=== PATIENT | female | born 1960 | race Caucasian/White ===

== ENCOUNTER → 2018-02-25 16:38 | Outpatient (CLI) | payer OTHER, SELFPAY | PROVIDERS: Family Provider Family Medicine; PCP Family Medicine; Visit Provider Nurse Practitioner Women's Health | DX: Z12.31 Encounter for screening mammogram for malignant neoplasm of breast (principal) | CPT/HCPCS: 77063; 77067 ==

== ENCOUNTER → 2019-04-09 08:12 | Outpatient (CLI) | payer OTHER, SELFPAY ==
[2018-02-24 08:02] VITALS: BMI 21.4
--- NOTE | 2019-04-09 08:15 | BI_ITS ---
MAMMOGRAPHY - BILATERAL SCREENING REASON FOR EXAM: Female, 58 years old. Routine annual screening examination. PERTINENT HISTORY: Grandfather with breast cancer. Remote left excisional breast biopsy. TECHNIQUE: Digital bilateral breast breonna (3D mammographic acquisition) in the CC and MLO projections. 2-D mediolateral oblique (MLO) and craniocaudad (CC) views of both breasts were obtained. CAD: Full Field Digital Mammography with Computer Added Detection was performed. COMPARISON: Comparison is made with prior study February 25, 2018 and February 14, 2017. FINDINGS: Breast Composition: The breasts are extremely dense, which lowers the sensitivity of mammography. There are no dominant masses or suspicious calcifications. No other significant abnormalities are identified. There has been no significant change since the prior study. BI/SCREEN MAMM (CAD) W/BREONNA BILAT IMPRESSION: Stable bilateral screening mammogram. Yearly follow-up mammogram recommended. (A) ASSESSMENT CATEGORY: BIRADS Category 1: Negative. A letter regarding these results will be sent to the patient by the facility within 30 days. Approximately 10% of breast cancers are not detected by mammography. A normal mammogram should not delay biopsy of a clinically suspicious abnormality. [id number] Electronically Signed: Greg Avitia, at 9:51 EDT , Service support ,
== END ==
PROVIDERS: Family Provider Family Medicine; PCP Family Medicine; Referring Provider Nurse Practitioner Women's Health; Visit Provider Nurse Practitioner Women's Health
DX: Z12.31 Encounter for screening mammogram for malignant neoplasm of breast (principal); Z80.3 Family history of malignant neoplasm of breast
CPT/HCPCS: 77063; 77067

== ENCOUNTER 2019-06-03 06:57 | Day surgery (SDC) | payer OTHER, SELFPAY ==
[2019-04-09 08:52] VITALS: BMI 21.4
[2019-06-03] VITALS (7 sets, daily range): BP systolic 116–128; BP diastolic 67–78; PULSE 64–79; RESP 15–16; TEMP 36.6–36.9; O2SAT 100; BMI 22.1
--- NOTE | 2019-06-03 07:17 | H&P.OPEN ---
History of Present Illness Date of Admission: 06/03/19 The patient is a 59 year old F presents for screening colonoscopy. Patient's last colonoscopy was in [address] Edmondson patient did have a tubular adenoma in her cecum and redundant colon. Patient was recommended to have a follow-up colonoscopy in 5 years. Patient states she has vomits daily denies any blood denies any chronic abdominal pain nausea or vomiting. Patient denies any family history of colon cancer. Past Medical/Surgical History - Planned Operation Planned Operative Procedure/s: cscope open access S.O.S: No - Previous Hospitalizations/Surgeries HX Hospitalizations: Yes HX of Surgeries: BREAST BX LEFT 85. MENISICUS LEFT REPAIR. CHILDBIRTH X2 VAG. L&R VEIN STRIPPING Any Problems With Anesthesia: No You/Your Family Experience Fever (Hyperthermia) With Anes: No Cholinesterase deficiency: No - Cardiovascular Hx Chest Pain within Last 2 months: No Hx of Irregular Heartbeat and/or Afib: No Hx Heart Attack: No Hx Congestive Heart Failure: No Hx Rheumatic Fever: No Hx Hypertension: No Hx Internal Defibrillator: No Hx Pacemaker: No Hx Cardiac Catheterization: No Hx Cardiac Surgery/Stents/Etc.: No Hx Stress Test: No HX Edema: No Hx Pain in Legs when Walking/Leg Cramps: No - Respiratory Chronic Cough: No HX of Shortness of Breath: No Hoarseness: No Hx Chronic Obstructive Pulmonary Disease (COPD): No Hx Asthma: No Hx Emphysema: No Hx Sleep Apnea: No CPAP: No BIPAP: No Hx Oxygen Use at Home: No Hx Respiratory Tract Infection/Cold (presently): No Do You Snore Loudly (louder than talking or can be heard): No Do You Often Feel Tired/ Fatigued/ Sleepy Dring Daytime?: No Has Anyone Observed You Stop Breathing During Sleep?: No Result (for STOP score): Negative Hx Smoking: No Smoking Status: Never smoker - Gastrointestinal Hx Gastroesophageal Reflux: No Hx Gastrointestinal Disorders: No Hx Gastrointestinal Bleed: No Hx Ulcer: No Hx Hiatal Hernia: No Difficulty Chewing/Swallowing: No Recent Onset of Swallowing Problems: No Special diet followed at home: No Hx Unplanned Weight Loss of 20#: No HX Unplanned Weight Gain of 20#: No - Neurological Hx Seizures: No HX Syncope/Blackout Spells/Unconsciousness: No Hx CVA/Stroke: No Hx Transient Ischemic Attacks (TIA): No Hx Multiple Sclerosis: No Hx Parkinson's Disease: No Hx Head/Neck Injury: No Hx Headaches: No Hx Back Injury/Pain: No Recent Onset of Speech Difficulty: No Restless Legs: No Does patient have nerve stimulator: No Patient instructed to have device shut off: No Rep notified?: No - Blood Disorder Hx Leukemia: No Bleeding Tendencies: No Hx Deep Vein Thrombosis: No Hx High Cholesterol: No Blood Transmitted Disease: No Hx Hepatitis: No Hx Cirrhosis: No Hx Anemia: No Hx Blood Disorders: No - Reproduction : No Is Patient Lactating: No Hx Hysterectomy: No Hx Tubal Ligation: No Are You Post Menopause: Yes - Genitourinary Hx Renal Disease: No - Musculoskeletal Hx Arthritis: No Hx Rheumatoid Arthritis: No Hx Gout: No Recent Onset of an Orthopedic Problem: No - Endocrine Hx Diabetes: No Thyroid Disease: No Hx Steroid Therapy: No - Psycho/Social Hx Substance Use: No Hx Alcohol Use: Yes - occ Hx Anxiety: No Hx Depression: No Mental Illness: No Hx Dementia: No - Miscellaneous Hx Cancer: No Recent Exposure to Contagious Disease: No Active MRSA: No Hx of C-Diff: No Any Loose Teeth: No Allergies No Known Allergies Allergy (Verified 06/03/19 07:08) - Discharge Is Pt Admitted From a Penitentiary, or a Prison: No Who Could Help: family After D/C, Where Do you Plan to Go: Return Home - Physical Exam Vitals/I&O's: Body Mass Index (BMI) 21.4 General: Alert, Oriented x3, Cooperative, No apparent distress HEENT: Atraumatic Lungs: Normal air movement Cardiovascular: Regular rate Abdomen: Soft, Non Tender, Non-Distended Extremities: No clubbing, No cyanosis, No edema Neurological: Cranial nerves II-XII grossly intact Psych/Mental Status: Normal Affect Assessment/Plan 59-year-old female for screening for colon cancer Surgery Risks - Colonoscopy I discussed with the patient the risks of the procedure: Yes Risks Include but are not Limited To: Risks include but are not limited to: Bleeding, perforation requiring further surgery, inability to complete colonoscopy requiring barium enema. Patient no further questions this time.
[2019-06-03] MEDS: Lactated Ringers 1,000 ML 100 ML IV (07:22)
--- NOTE | 2019-06-03 08:00 | COLBX_PTH ---
PATIENT: BRITTON GLASS LOC: EN U#:[id number] AGE/SX: 59/F ROOM: RE06/03/[address]: Dr. Lyssa Rivera MD : 1960 BED: DIS: 06/03/2019 SPEC #: [id number] RECD: 06/03/19 14:03 STATUS: AMINATA MAREK #: [id number] ERNST: 06/03/19 08:[address]: Lyssa Rivera DEPT: SURGICAL PATHOLOGY RECD BY: Олег Quezada ENTERED: 06/03/19 14:32 SP TYPE: COLON BX OTHR DR: Dr. Andrew Mosley MD Tissues: A - Cecum, NOS B - Ascending colon C - Sigmoid colon biopsy Procedures: Surgery Specimen Level IV HEADER OPERATION: Colonoscopy, open access (MAC) PRE-OP DIAGNOSIS: Screening TISSUE SUBMITTED: A. Cecum polyp biopsy, B. Proximal ascending polyp, C. Distal sigmoid biopsy MICROSCOPIC DIAGNOSIS A. Cecum polyp, biopsy: Fragments of tubular adenoma. B. Proximal ascending colon polyp, biopsy: Fragments of tubular adenoma. C. Distal sigmoid, biopsy: Fragments of colonic mucosa with focal ulceration and associated acute inflammation. See comment. MADDY:anatoliy 06/05/19 COMMENT C. Cryptitis, crypt abscess, glandular distortion or granulomas are not seen. Correlation with clinical, endoscopic findings and appropriate follow up are necessary. MICROSCOPIC DESCRIPTION Slides are reviewed. GROSS DESCRIPTION A - Received in fixative is one container labeled with the patient's name and designated cecum biopsy. The specimen consists of two irregular fragments of light segal soft tissue that in aggregate measure 0.5 x 0.3 x 0.1 cm. The specimen is totally submitted in one cassette. B - Received in fixative is one container labeled with the patient's name and designated proximal ascending polyp. The specimen consists of multiple irregular fragments of light segal soft tissue that in aggregate measure 1 x 0.6 x 0.3 cm. The specimen is totally submitted in one cassette. C - Received in fixative is one container labeled with the patient's name and designated distal sigmoid biopsy. The specimen consists of multiple irregular fragments of light segal soft tissue that in aggregate measure 1.5 x 0.3 x 0.1 cm. The specimen is totally submitted in one cassette. / MADDY:anatoliy 06/03/19 TC:1 CPT: 19937 x3
--- NOTE | 2019-06-03 09:04 | OP.COLON_ITS ---
Patient Name: So Brandt Procedure Date: 06/03/2019 7:28 AM Date of : 1960 Age: 59 Procedure: Colonoscopy Indications: Surveillance: Personal history of adenomatous polyps on last colonoscopy > 5 years ago Providers: Lyssa Rivera MD Referring MD: Andrew Mosley Patient Profile: This is a 59 year old female. Last Colonoscopy: 7 years ago. Complications: No immediate complications. Procedure: Pre-Anesthesia Assessment: - Prior to the procedure, a History and Physical was performed, and patient medications and allergies were reviewed. The patient's tolerance of previous anesthesia was also reviewed. The risks and benefits of the procedure and the sedation options and risks were discussed with the patient. All questions were answered, and informed consent was obtained. Prior Anticoagulants: The patient has taken no previous anticoagulant or antiplatelet agents. ASA Grade Assessment: I - A normal, healthy patient. After reviewing the risks and benefits, the patient was deemed in satisfactory condition to undergo the procedure. After I obtained informed consent, the scope was passed under direct vision. Throughout the procedure, the patient's blood pressure, pulse, and oxygen saturations were monitored continuously. The Colonoscope was introduced through the anus and advanced to the cecum, identified by the appendiceal orifice, ileocecal valve and palpation. The colonoscopy was technically difficult and complex due to a tortuous colon. Successful completion of the procedure was aided by applying abdominal pressure. The patient tolerated the procedure well. The quality of the bowel preparation was good. Scope In: 7:51:33 AM Scope Withdrawal Time 0 hours 39 minutes 48 seconds Scope Out: 8:51:46 AM Total Procedure Duration Time 1 hour 0 minutes 13 seconds Findings: Hemorrhoids were found on perianal exam. A less than 5 mm polyp was found in the cecum. The polyp was sessile. The polyp was removed with a cold biopsy forceps. Resection and retrieval were complete. A 6 to 9 mm polyp was found in the proximal ascending colon. The polyp was semi-sessile. Polypectomy was attempted, initially using a saline injection-lift technique with a hot snare. Polyp resection was incomplete with this device. This intervention then required a different device and polypectomy technique. The polyp was removed with a hot snare biopsy x 2 and cold forceps. Resection and retrieval were complete. An area of friable mucosa with no bleeding was found in the sigmoid colon. Biopsies were taken with a cold forceps for histology--after biopsy of wispy tissue, question if could be an inverted diverticulum, no further biopsies--abdomen remained soft. Area was successfully injected with 0.3 of a 1:10,000 solution of epinephrine for hemostasis of bleeding caused by the procedure. Multiple small and large-mouthed diverticula were found in the sigmoid colon, descending colon and transverse colon. Non-bleeding internal hemorrhoids were found. The hemorrhoids were Grade I (internal hemorrhoids that do not prolapse). Impression: - Hemorrhoids found on perianal exam. - One less than 5 mm polyp in the cecum, removed with a cold biopsy forceps. Resected and retrieved. - One 6 to 9 mm polyp in the proximal ascending colon, removed with a hot snare. Resected and retrieved. - Friability with no bleeding in the sigmoid colon. Biopsied. Injected. - Diverticulosis in the sigmoid colon, in the descending colon and in the transverse colon. - Non-bleeding internal hemorrhoids. Recommendation: - Discharge patient to home. - Resume previous diet. - Continue present medications. - Await pathology results. - Repeat colonoscopy in 6 months for surveillance after piecemeal polypectomy. Procedure Code(s): --- Professional --- 35441, Colonoscopy, flexible; with removal of tumor(s), polyp(s), or other lesion(s) by snare technique 00802, 59, Colonoscopy, flexible; with biopsy, single or multiple Diagnosis Code(s): --- Professional --- Z86.010, Personal history of colonic polyps K64.0, First degree hemorrhoids D12.0, Benign neoplasm of cecum D12.2, Benign neoplasm of ascending colon K63.89, Other specified diseases of intestine K57.30, Diverticulosis of large intestine without perforation or abscess without bleeding CPT copyright 2017 [employer]. All rights reserved. The codes documented in this report are preliminary and upon wallpaper printer helper review may be revised to meet current compliance requirements. MD Lyssa Baltazar MD 06/03/2019 9:04:41 AM This report has been signed electronically. Number of Addenda: 0 Note Initiated On: 06/03/2019 7:28 AM
== END 2019-06-03 09:59 | disposition home or self-care (01) ==
LOC: EN 06:57 → AC 06:59
PROVIDERS: Family Provider Family Medicine; PCP Family Medicine; Referring Provider Family Medicine; Visit Provider Surgery
PROC: 0DJD8ZZ Inspection of Lower Intestinal Tract, Via Natural or Artificial Opening Endoscopic (ICD-10-PCS; CPT 45378; principal; 2019-06-03 07:55)
DX: Z12.11 Encounter for screening for malignant neoplasm of colon (principal); D12.0 Benign neoplasm of cecum; D12.2 Benign neoplasm of ascending colon; K57.30 Diverticulosis of large intestine without perforation or abscess without bleeding; K64.0 First degree hemorrhoids; Z79.899 Other long term (current) drug therapy; Z86.010 Personal history of colon polyps; Z78.0 Asymptomatic menopausal state
CPT/HCPCS: 45380; 45385; 88305; J7120; A4216; J1610; J2405

== ENCOUNTER → 2020-04-25 08:06 | Outpatient (CLI) | payer OTHER, SELFPAY ==
[2019-06-03 07:14] VITALS: BMI 22.1
--- NOTE | 2020-04-25 08:06 | BI_ITS ---
MAMMOGRAPHY - BILATERAL SCREENING REASON FOR EXAM: Female, 59 years old. Routine annual screening examination. PERTINENT HISTORY: Grandmother with breast cancer. Remote left excisional breast biopsy. TECHNIQUE: Digital bilateral breast breonna (3D mammographic acquisition) in the CC and MLO projections. 2-D mediolateral oblique (MLO) and craniocaudad (CC) views of both breasts were obtained. CAD: Full Field Digital Mammography with Computer Added Detection was performed. COMPARISON: Comparison is made with prior study done 04/09/2019 and 02/25/2018. FINDINGS: Breast Composition: The breasts are extremely dense, which lowers the sensitivity of mammography. There are no dominant masses or suspicious calcifications. No other significant abnormalities are identified. There has been no significant change since the prior study. BI/SCREEN MAMM (CAD) W/BREONNA BILAT IMPRESSION: Stable bilateral screening mammogram. Yearly follow-up mammogram recommended. (A) ASSESSMENT CATEGORY: BIRADS Category 1: Negative. A letter regarding these results will be sent to the patient by the facility within 30 days. Approximately 10% of breast cancers are not detected by mammography. A normal mammogram should not delay biopsy of a clinically suspicious abnormality. [id number] Electronically Signed: Greg Avitia, at 10:39 EDT , Service support ,
[2020-04-27 14:52] LABS: HPV APTIMA, High Risk Negative (Negative)
== END ==
PROVIDERS: PCP Family Medicine; Referring Provider Nurse Practitioner Women's Health; Visit Provider Nurse Practitioner Women's Health
DX: Z12.31 Encounter for screening mammogram for malignant neoplasm of breast (principal); Z80.3 Family history of malignant neoplasm of breast; Z12.4 Encounter for screening for malignant neoplasm of cervix
CPT/HCPCS: 77063; 77067; 87624; 88175; G0145

== ENCOUNTER → 2020-06-06 16:01 | Outpatient (CLI) | payer OTHER, SELFPAY ==
[2020-04-25 08:48] VITALS: BMI 22.5
--- NOTE | 2020-06-06 16:03 | RAD_ITS ---
STUDY: X-RAY - LEFT HAND REASON FOR EXAM: Female, 60 years old. Fall 2 weeks ago. Continued pain in the fifth metacarpal. TECHNIQUE: 3 view(s) of the hand. COMPARISON: None. FINDINGS: Normal radiocarpal articulation. Normal distal radioulnar joint. Normal visualized carpal bones. Normal carpal articulations Normal carpometacarpal articulation of the thumb. Normal second through fifth carpometacarpal joints. Normal first through fourth metacarpi. There is a mildly displaced fracture through the fifth metacarpal head with slight volar angulation and displacement. Normal metacarpophalangeal joint of the thumb. Normal interphalangeal joint of the thumb. Normal proximal and distal phalanges of the thumb. Normal metacarpophalangeal joints of the second through fifth fingers. There is diffuse articular joint space narrowing of the proximal and distal interphalangeal joints of the second through fifth fingers, but without erosive changes or periarticular soft tissue swelling. Normal phalanges of the second through fifth fingers. The soft tissue structures are unremarkable. RAD/Hand Min 3 Views IMPRESSION: Minimally displaced fracture of the distal fifth metacarpal. Electronically Signed: Ramirez Chiang DO at 16:49 EST Tel [phone], Service support ,
== END ==
PROVIDERS: PCP Family Medicine; Referring Provider Family Medicine; Visit Provider Family Medicine
DX: M79.645 Pain in left finger(s) (principal)
CPT/HCPCS: 73130

== ENCOUNTER 2020-06-08 06:50 | Day surgery (SDC) | payer OTHER, SELFPAY ==
[2020-04-25 08:48] VITALS: BMI 22.5
[2020-06-08] VITALS (7 sets, daily range): BP systolic 116–131; BP diastolic 70–77; PULSE 80–88; RESP 16; TEMP 36.1–36.8; O2SAT 99–100; BMI 22.5
[2020-06-08] MEDS: Lactated Ringers 1,000 ML 100 ML IV (07:28)
--- NOTE | 2020-06-08 07:48 | HP.PCM_ITS ---
History of Present Illness Date of Admission: 06/08/20 The patient is a 60 year old F for surveillance colonoscopy due to piecemeal resection of polyp. Her last colonoscopy was in May 2019. Patient denies any changes to her medical history in the last year. Patient states has bowel movements daily denies any blood denies any family history of colon cancer. Past Medical/Surgical History - Planned Operation Planned Operative Procedure/s: scope Date of Operative Procedure: 06/08/20 Permit Signed: No S.O.S: No Is This Patient Having a Total Joint: No - Previous Hospitalizations/Surgeries HX Hospitalizations: No HX of Surgeries: BREAST BX LEFT 85. MENISICUS LEFT REPAIR. CHILDBIRTH X2 VAG. L&R VEIN STRIPPING. cscope 2019 Any Problems With Anesthesia: No You/Your Family Experience Fever (Hyperthermia) With Anes: No Cholinesterase deficiency: No - Cardiovascular Hx Chest Pain within Last 2 months: No Hx of Irregular Heartbeat and/or Afib: No Hx Heart Attack: No Hx Congestive Heart Failure: No Hx Rheumatic Fever: No Hx Hypertension: No Hx Internal Defibrillator: No Hx Pacemaker: No Hx Cardiac Catheterization: No Hx Cardiac Surgery/Stents/Etc.: No Hx Stress Test: No Hx Pain in Legs when Walking/Leg Cramps: No - Respiratory Chronic Cough: No HX of Shortness of Breath: No Hoarseness: No Hx Chronic Obstructive Pulmonary Disease (COPD): No Hx Asthma: No Hx Emphysema: No Hx Sleep Apnea: No CPAP: No BIPAP: No Hx Oxygen Use at Home: No Hx Respiratory Tract Infection/Cold (presently): No Do You Snore Loudly (louder than talking or can be heard): No Do You Often Feel Tired/ Fatigued/ Sleepy Dring Daytime?: No Has Anyone Observed You Stop Breathing During Sleep?: No Result (for STOP score): Negative Hx Smoking: No Smoking Status: Never smoker - Gastrointestinal Hx Gastroesophageal Reflux: No Hx Gastrointestinal Disorders: No Hx Gastrointestinal Bleed: No Hx Ulcer: No Hx Hiatal Hernia: No Difficulty Chewing/Swallowing: No Recent Onset of Swallowing Problems: No Special diet followed at home: No Hx Unplanned Weight Loss of 20#: No HX Unplanned Weight Gain of 20#: No - Neurological Hx Seizures: No HX Syncope/Blackout Spells/Unconsciousness: No Hx CVA/Stroke: No Hx Transient Ischemic Attacks (TIA): No Hx Multiple Sclerosis: No Hx Parkinson's Disease: No Hx Head/Neck Injury: No Hx Headaches: No Hx Back Injury/Pain: No Recent Onset of Speech Difficulty: No Restless Legs: No Does patient have nerve stimulator: No Patient instructed to have device shut off: No Rep notified?: No - Blood Disorder Hx Leukemia: No Bleeding Tendencies: No Hx Deep Vein Thrombosis: No Hx High Cholesterol: No Blood Transmitted Disease: No Hx Hepatitis: No Hx Cirrhosis: No Hx Anemia: No Hx Blood Disorders: No - Reproduction Is Patient Lactating: No Hx Hysterectomy: No Hx Tubal Ligation: No Are You Post Menopause: Yes - Genitourinary Hx Renal Disease: No - Musculoskeletal Hx Arthritis: No Hx Rheumatoid Arthritis: No Hx Gout: No Recent Onset of an Orthopedic Problem: No - Endocrine Hx Diabetes: No Thyroid Disease: No Hx Steroid Therapy: No - Psycho/Social Hx Substance Use: No Hx Alcohol Use: Yes - occ Hx Anxiety: No Hx Depression: No Mental Illness: No Hx Dementia: No - Miscellaneous Hx Cancer: No Recent Exposure to Contagious Disease: No Active MRSA: No Hx of C-Diff: No Any Loose Teeth: No Allergies No Known Allergies Allergy (Verified 06/08/20 07:12) - Discharge Is Pt Admitted From a [facility], or a Longterm: No After D/C, Where Do you Plan to Go: Return Home - From the PAT History Number of Risk Factors: 1 - Physical Exam Vitals/I&O's: Vital Signs Temp Pulse Resp BP Pulse Ox 98.2 F 87 16 131/72 H 99 06/08/20 07:15 06/08/20 07:15 06/08/20 07:15 06/08/20 07:15 06/08/20 07:15 Oxygen Delivery Method Room Air Weight: 121 lb 6.4 oz Body Mass Index (BMI) 22.5 General: Alert, Oriented x3, Cooperative, No apparent distress HEENT: Atraumatic Lungs: Normal air movement Cardiovascular: Regular rate Abdomen: Soft, Non Tender, Non-Distended Extremities: No clubbing, No cyanosis, No edema Psych/Mental Status: Normal Affect Microbiology Past 72 Hours 06/06/20 15:19 Interface Orders SARS-CoV-2 Antigen (Rapid) - Final Current Medications Lactated Ringer's () 1,000 mls @ 100 mls/hr IV .Q10H DONITA Last Admin: 12/02/20 07:28 Dose: 100 mls/hr Documented by: Assessment/Plan All Active Problems (Last Reviewed 04/25/20 @ 08:48 by Carlie Felipe) Atrophic vaginitis (Acute) 60-year-old female with history of colon polyps Procedure Criteria Procedure Type: Elective COVID Risk Discussion: The surgeon/proceduralist and patient have discussed in detail the risk of exposure to and/or potential harm posed by the COVID-19 virus with having a surgery/procedure at this time versus the risk of delaying the surgery/procedure. It is not possible to know either the risk of delaying the surgery or procedure or chance of getting an infection with perfect accuracy, but a joint decision was made between the patient and the surgeon/proceduralist to proceed at this time with the scheduled surgery/procedure as indicated on the consent form. Surgery Risks - Colonoscopy I discussed with the patient the risks of the procedure: Yes Risks Include but are not Limited To: Risks include but are not limited to: Bleeding, perforation requiring further surgery, inability to complete colonoscopy requiring barium enema.
--- NOTE | 2020-06-08 08:00 | COLBX_PTH ---
PATIENT: BRITTON GLASS LOC: EN U#:[id number] AGE/SX: 60/F ROOM: RE06/08/[address]: Dr. Lyssa Rivera MD : 1960 BED: DIS: 06/08/2020 SPEC #: [id number] RECD: 06/08/20 12:58 STATUS: AMINATA MAREK #: [id number] ERNST: 06/08/20 08:[address]: Lyssa Rivera DEPT: SURGICAL PATHOLOGY RECD BY: Radha Lemus ENTERED: 06/08/20 13:47 SP TYPE: COLON BX OTHR DR: Dr. Andrew Mosley MD Tissues: A - Transverse colon B - Rectum, NOS Procedures: Surgery Specimen Level IV HEADER OPERATION: Colonoscopy - open access (MAC) PRE-OP DIAGNOSIS: History of colon polyp TISSUE SUBMITTED: A - Distal transverse polyp biopsy, B - Rectal polyp biopsy MICROSCOPIC DIAGNOSIS A. Distal transverse colon polyp, biopsy: Fragments of tubular adenoma. B. Rectal polyp, biopsy: Hyperplastic polyp. SJ:anatoliy 06/09/20 MICROSCOPIC DESCRIPTION Slides are reviewed. GROSS DESCRIPTION A - Received in fixative is one container labeled with the patient's name and designated distal transverse colon polyp. The specimen consists of multiple irregular fragments of light segal soft tissue that in aggregate measure 1 x 0.5 x 0.1 cm. The specimen is totally submitted in one cassette. B - Received in fixative is one container labeled with the patient's name and designated rectal polyp. The specimen consists of two irregular fragments of light segal soft tissue that in aggregate measure 0.3 x 0.2 x 0.1 cm. The specimen is totally submitted in one cassette. / AM:anatoliy 06/08/20 TC:1 CPT: 89639 x2
--- NOTE | 2020-06-08 08:43 | OP.COLON_ITS ---
Patient Name: So Brandt Procedure Date: 06/08/2020 7:14 AM Date of : 1960 Age: 60 Procedure: Colonoscopy Indications: Surveillance: History of piecemeal removal adenoma on last colonoscopy (< 3 yrs) Providers: Lyssa Rivera MD Referring MD: Lyssa Rivera MD Medicines: Monitored Anesthesia Care Patient Profile: This is a 60 year old female. Last Colonoscopy: May 2019. Complications: No immediate complications. Procedure: Pre-Anesthesia Assessment: - Prior to the procedure, a History and Physical was performed, and patient medications and allergies were reviewed. The patient's tolerance of previous anesthesia was also reviewed. The risks and benefits of the procedure and the sedation options and risks were discussed with the patient. All questions were answered, and informed consent was obtained. Prior Anticoagulants: The patient has taken no previous anticoagulant or antiplatelet agents. ASA Grade Assessment: Per anesthesia. After reviewing the risks and benefits, the patient was deemed in satisfactory condition to undergo the procedure. After I obtained informed consent, the scope was passed under direct vision. Throughout the procedure, the patient's blood pressure, pulse, and oxygen saturations were monitored continuously. The colonoscope was introduced through the anus and advanced to the cecum, identified by the appendiceal orifice, ileocecal valve and palpation. The colonoscopy was technically difficult and complex due to a tortuous colon. Successful completion of the procedure was aided by using manual pressure. The patient tolerated the procedure well. The quality of the bowel preparation was good. Scope In: 7:59:51 AM Scope Withdrawal Time 0 hours 18 minutes 36 seconds Scope Out: 8:32:53 AM Total Procedure Duration Time 0 hours 33 minutes 2 seconds Findings: Hemorrhoids were found on perianal exam. Two sessile polyps were found in the rectum and distal transverse colon. The polyps were less than 5 mm in size. These polyps were removed with a cold biopsy forceps. Resection and retrieval were complete. Many small-mouthed diverticula were found in the sigmoid colon, descending colon and transverse colon. Non-bleeding internal hemorrhoids were found. The hemorrhoids were Grade I (internal hemorrhoids that do not prolapse). Impression: - Hemorrhoids found on perianal exam. - Two less than 5 mm polyps in the rectum and in the distal transverse colon, removed with a cold biopsy forceps. Resected and retrieved. - Diverticulosis in the sigmoid colon, in the descending colon and in the transverse colon. - Non-bleeding internal hemorrhoids. Recommendation: - Repeat colonoscopy in 5 years for surveillance based on pathology results. - Discharge patient to home. - High fiber diet. - Continue present medications. Procedure Code(s): --- Professional --- 90328, PT, Colonoscopy, flexible; with biopsy, single or multiple Diagnosis Code(s): --- Professional --- Z86.010, Personal history of colonic polyps K64.0, First degree hemorrhoids K62.1, Rectal polyp D12.3, Benign neoplasm of transverse colon (hepatic flexure or splenic flexure) K57.30, Diverticulosis of large intestine without perforation or abscess without bleeding CPT copyright 2017 [employer]. All rights reserved. The codes documented in this report are preliminary and upon material handler 2nd shift review may be revised to meet current compliance requirements. MD Lyssa Baltazar MD 06/08/2020 8:42:59 AM This report has been signed electronically. Number of Addenda: 0 Note Initiated On: 06/08/2020 7:14 AM
--- NOTE | 2020-06-08 08:43 | OP.CCLET_ITS ---
06/08/2020 Andrew Mosley Re : Colonoscopy procedure for So Brandt Dear Melany This procedure was performed on Monday, June 08, 2020. My impressions and recommendations are as follows: Impressions : - Hemorrhoids found on perianal exam. - Two less than 5 mm polyps in the rectum and in the distal transverse colon, removed with a cold biopsy forceps. Resected and retrieved. - Diverticulosis in the sigmoid colon, in the descending colon and in the transverse colon. - Non-bleeding internal hemorrhoids. Recommendations : - Repeat colonoscopy in 5 years for surveillance based on pathology results. - Discharge patient to home. - High fiber diet. - Continue present medications. My findings are described in the full procedure note, which is enclosed. If I can be of further assistance, please feel free to contact me at Doctor phone number(s): , Work: . Sincerely, MD Lyssa Baltazar MD 06/08/2020 8:42:59 AM This report has been signed electronically.
== END 2020-06-08 09:25 | disposition home or self-care (01) ==
LOC: EN 06:53 → AC 06:54
PROVIDERS: PCP Family Medicine; Referring Provider Surgery; Visit Provider Surgery
PROC: 0DJD8ZZ Inspection of Lower Intestinal Tract, Via Natural or Artificial Opening Endoscopic (ICD-10-PCS; CPT 45378; principal; 2020-06-08 07:55)
DX: Z12.11 Encounter for screening for malignant neoplasm of colon (principal); D12.3 Benign neoplasm of transverse colon; K62.1 Rectal polyp; K57.30 Diverticulosis of large intestine without perforation or abscess without bleeding; K64.0 First degree hemorrhoids; Z20.828 Contact with and (suspected) exposure to other viral communicable diseases; Z86.010 Personal history of colon polyps; Z78.0 Asymptomatic menopausal state
CPT/HCPCS: 45380; 87426; 88305; C9803; J7120; J2405

== ENCOUNTER → 2021-04-27 09:57 | Outpatient (CLI) | payer OTHER, SELFPAY ==
--- NOTE | 2021-04-27 10:12 | BI_ITS ---
MAMMOGRAPHY - BILATERAL SCREENING REASON FOR EXAM: Female, 60 years old. Routine annual screening examination. PERTINENT HISTORY: Grandmother with breast cancer. Remote left excisional breast biopsy. TECHNIQUE: Digital bilateral breast breonna (3D mammographic acquisition) in the CC and MLO projections. 2-D mediolateral oblique (MLO) and craniocaudad (CC) views of both breasts were obtained. CAD: Full Field Digital Mammography with Computer Added Detection was performed. COMPARISON: Comparison is made with prior study dated 04/25/2020 and 04/09/2019. FINDINGS: Breast Composition: The breasts are extremely dense, which lowers the sensitivity of mammography. There are no dominant masses or suspicious calcifications. No other significant abnormalities are identified. There has been no significant change since the prior study. BI/SCRN MAMM (CAD)W/BREONNA BILAT IMPRESSION: Stable bilateral screening mammogram. Yearly follow-up mammogram recommended. (A) ASSESSMENT CATEGORY: BIRADS Category 1: Negative. A letter regarding these results will be sent to the patient by the facility within 30 days. Approximately 10% of breast cancers are not detected by mammography. A normal mammogram should not delay biopsy of a clinically suspicious abnormality. [id number] Electronically Signed: Greg Avitia MD at 12:50 EDT , Service support ,
== END ==
PROVIDERS: PCP Family Medicine; Referring Provider Nurse Practitioner Women's Health; Visit Provider Nurse Practitioner Women's Health
DX: Z12.31 Encounter for screening mammogram for malignant neoplasm of breast (principal); Z80.3 Family history of malignant neoplasm of breast
CPT/HCPCS: 77063; 77067

== ENCOUNTER → 2021-05-17 10:38 | Outpatient (CLI) | payer OTHER, SELFPAY ==
--- NOTE | 2021-05-17 10:40 | RAD_ITS ---
STUDY: X-RAY CHEST REASON FOR EXAM: Female, 61 years old. 10 day history of cough. TECHNIQUE: PA and lateral views of the chest. COMPARISON: None. FINDINGS: The lungs are clear and expanded. Scattered calcified granulomas. There is no demonstrated pleural abnormality. Normal size heart. Normal mediastinum and minal. Normal visualized pulmonary arteries. Normal visualized aortic arch and descending thoracic aorta. There is demineralization of the osseous structures. Normal visualized ribs, clavicles, and shoulders. There is no demonstrated abnormality of the visualized soft tissue structures of the upper abdomen. RAD/Chest PA and Lateral IMPRESSION: No acute abnormality is seen. Electronically Signed: Greg Avitia MD at 10:52 EST , Service support ,
== END ==
PROVIDERS: PCP Family Medicine; Referring Provider Physician Assistant; Visit Provider Physician Assistant
DX: R05.9 Cough, unspecified (principal); R50.9 Fever, unspecified
CPT/HCPCS: 71046

== ENCOUNTER → 2022-04-30 | Outpatient (CLI) | payer OTHER, SELFPAY ==
--- NOTE | 2022-04-30 09:08 | BI_ITS ---
MAMMOGRAPHY - BILATERAL SCREENING REASON FOR EXAM: Female, 61 years old. Routine annual screening examination. PERTINENT HISTORY: Grandfather with breast cancer. TECHNIQUE: Digital bilateral breast breonna (3D mammographic acquisition) in the CC and MLO projections. 2-D mediolateral oblique (MLO) and craniocaudad (CC) views of both breasts were obtained. CAD: Full Field Digital Mammography with Computer Added Detection was performed. COMPARISON: Comparison is made with prior study 04/27/2021 and 04/25/2020. FINDINGS: Breast Composition: The breasts are extremely dense, which lowers the sensitivity of mammography. There are no dominant masses or suspicious calcifications. Stable small benign-appearing bilateral axillary lymph nodes. No other significant abnormalities are identified. There has been no significant change since the prior study. BI/SCRN MAMM (CAD)W/BREONNA BILAT IMPRESSION: Stable bilateral screening mammogram. Yearly follow-up mammogram recommended. (A) ASSESSMENT CATEGORY: BIRADS Category 2: Benign. A letter regarding these results will be sent to the patient by the facility within 30 days. Approximately 10% of breast cancers are not detected by mammography. A normal mammogram should not delay biopsy of a clinically suspicious abnormality. [id number] Electronically Signed: Greg Avitia MD at 10:08 EDT ,
== END | disposition home or self-care (01) ==
LOC: OPBI 09:07
PROVIDERS: PCP Family Medicine; Visit Provider Nurse Practitioner Women's Health
DX: Z12.31 Encounter for screening mammogram for malignant neoplasm of breast (principal); Z80.3 Family history of malignant neoplasm of breast
CPT/HCPCS: 77063; 77067

== ENCOUNTER → 2022-05-01 | Outpatient (CLI) | payer OTHER, SELFPAY ==
[2022-05-01 08:09] LABS: Vitamin D,25 Hydroxy 66.9 ng/mL
[2022-05-01 08:13] LABS: Cholesterol 267 mg/dL (200); Glucose 101 mg/dL (74-106); High Density Lipoprotein 97 mg/dL; Triglycerides 127 mg/dL; Very Low Density Lipoprotein 25 mg/dL (5-40)
== END | disposition home or self-care (01) ==
PROVIDERS: PCP Family Medicine; Referring Provider Nurse Practitioner Women's Health; Visit Provider Nurse Practitioner Women's Health
DX: Z13.1 Encounter for screening for diabetes mellitus (principal); Z13.220 Encounter for screening for lipoid disorders; Z13.29 Encounter for screening for other suspected endocrine disorder; Z13.21 Encounter for screening for nutritional disorder
CPT/HCPCS: 36415; 80061; 82306; 82947; 84443

== ENCOUNTER → 2023-03-26 | Outpatient (CLI) | payer OTHER, SELFPAY ==
[2023-03-26 10:26] LABS: Absolute Lymphocyte Count 2.63 X10^3/uL (0.83-4.51); Absolute Neutrophil Count 2.1 X10^3/uL (2.0-7.7); Basophil# 0.03 X10^3/uL; Basophil% 0.5 % (0-1); Eosinophil# 0.22 X10^3/uL; Hematocrit 43.9 % (37-47); Lymphocyte # 2.63 X10^3/ul (0.83-4.51); Lymphocyte % 47.9 % (19-41); Mean Corp Hgb Conc 31.9 g/dL (32-36); Mean Corpuscular Hgb 30.7 pg (27.0-32.0); Mean Corpuscular Volume 96.3 fL (81-99); Mean Platelet Vol. 10.5 fl (6.2-12.0); Monocyte# 0.55 X10^3/uL; NRBC Flagged by Analyzer 0 % (0-5); Neutrophil # 2.05 X10^3/uL (2.7-7.7); Neutrophil % 37.4 % (47-70); Platelet Count 290 K/mm3 (150-450); RBC Distribution Width CV 11.7 % (11.6-14.6); RBC Distribution Width SD 41.1 fl (35.1-43.9); Red Blood Count 4.56 M/mm3 (4.2-5.4); White Blood Count 5.5 K/mm3 (4.4-11.0)
[2023-03-26 11:38] LABS: ALB/GLOB Ratio 1.1 RATIO (0.9-2.4); AST(SGOT) 17 U/L (15-37); Alanine Aminotransfer ALT/SGPT 22 U/L (13-56); Albumin, Serum 3.9 g/dL (3.2-5.0); Alkaline Phosphatase 66 U/L (45-117); Anion Gap 5 (5-15); BUN 18 mg/dL (7-18); BUN/Creat Ratio 24.4 RATIO (10-20); Calcium,Total 8.8 mg/dL (8.5-10.1); Chloride 106 mmol/L (98-107); Cholesterol 285 mg/dL (200); Creatinine, Serum 0.74 mg/dL (0.55-1.02); EST Glomerular Filtration Rate 84 mL/min (>60); Est Glom Filt Rate - Afr Amer 102 mL/min (>60); Globulin 3.5 g/dL (2.2-4.2); Glucose 99 mg/dL (74-106); High Density Lipoprotein 109 mg/dL; Potassium 4.5 mmol/L (3.5-5.1); Protein, Total 7.4 g/dL (6.4-8.2); Sodium Level 139 mmol/L (136-145); Triglycerides 95 mg/dL; Very Low Density Lipoprotein 19 mg/dL (5-40)
== END | disposition home or self-care (01) ==
LOC: BIMLAB 09:33
PROVIDERS: PCP Internal Medicine; Referring Provider Internal Medicine; Visit Provider Internal Medicine
DX: Z00.00 Encounter for general adult medical examination without abnormal findings (principal); E78.2 Mixed hyperlipidemia
CPT/HCPCS: 36415; 80053; 80061; 85025

== ENCOUNTER → 2023-05-01 | Outpatient (CLI) | payer MEDICARE, SELFPAY ==
--- NOTE | 2023-05-01 08:44 | BI_ITS ---
MAMMOGRAPHY - BILATERAL SCREENING REASON FOR EXAM: Female, 62 years old. Routine annual screening examination. PERTINENT HISTORY: Grandfather with breast cancer. Remote left excisional breast biopsy. TECHNIQUE: Digital bilateral breast breonna (3D mammographic acquisition) in the CC and MLO projections. 2-D mediolateral oblique (MLO) and craniocaudad (CC) views of both breasts were obtained. CAD: Full Field Digital Mammography with Computer Added Detection was performed. COMPARISON: Comparison is made with prior study April 30, 2022 and April 27, 2021. FINDINGS: Breast Composition: The breasts are extremely dense, which lowers the sensitivity of mammography. There are no dominant masses or suspicious calcifications. No other significant abnormalities are identified. There has been no significant change since the prior study. BI/SCRN MAMM (CAD)W/BREONNA BILAT IMPRESSION: Stable bilateral screening mammogram. Yearly follow-up mammogram recommended. (A) ASSESSMENT CATEGORY: BIRADS Category 1: Negative. A letter regarding these results will be sent to the patient by the facility within 30 days. Approximately 10% of breast cancers are not detected by mammography. A normal mammogram should not delay biopsy of a clinically suspicious abnormality. [id number] Electronically Signed: Greg Avitia MD at 10:24 EDT ,
--- NOTE | 2023-05-01 09:13 | BD_ITS ---
STUDY: DUAL ENERGY X-RAY ABSORPTIOMETRY / DXA REASON FOR EXAM: Female, 62 years old. Screening TECHNIQUE: Bone Mineral Density (BMD) measurements of lumbar spine and bilateral hips were obtained. COMPARISON: None. FINDINGS: Lumbar Spine (L1-L4): g/cm2 (0.958) / T-score (-0.8) / Z-score (0.9) Findings are suggestive of normal bone density with a low fracture risk. Left Femur Total: g/cm2 (0.725) / T-score (-1.8) / Z-score (-0.6) Left Femoral Neck: g/cm2 (0.588) / T-score (-2.4) / Z-score (-0.8) Right Femur Total: g/cm2 (0.776) / T-score (-1.4) / Z-score (-0.1) Right Femoral Neck: g/cm2 (0.613) / T-score (-2.1) / Z-score (-0.6) BD/Dexa Bone Density Study IMPRESSION: The patient is considered osteopenic as outlined below according to World Chris Organization (WHO) criteria with a high fracture risk. Reference Information: The T-score is the number of standard deviations above or below the standard which is normal for young adults at their peak bone mineral density. The World Health Organization (WHO) interprets the T-scores as follows: Above -1 Normal bone density Between -1 and -2.5 Osteopenia Equal to / or below -2.5 Osteoporosis As a practical clinical guideline, osteopenia may be graded as follows: Mild -1 through -1.5 Moderate -1.6 through -2.0 Severe -2.1 through -2.4 The Z-score is the number of standard deviations above or below age-matched controls. A Z-score of less than -1.5 would be considered abnormal. References: 1. NIH Osteoporosis and Related Bone Diseases www osteo.org 2. International Society for Clinical Densitometry www iscd.org 3. National Osteoporosis Foundation www nof.org Electronically Signed: Greg Avitia MD at 12:43 EDT ,
== END | disposition home or self-care (01) ==
PROVIDERS: PCP Internal Medicine; Referring Provider Internal Medicine; Visit Provider Nurse Practitioner Women's Health
DX: Z12.31 Encounter for screening mammogram for malignant neoplasm of breast (principal); Z80.3 Family history of malignant neoplasm of breast; Z78.0 Asymptomatic menopausal state; M85.80 Other specified disorders of bone density and structure, unspecified site
CPT/HCPCS: 77063; 77067; 77080

== ENCOUNTER 2023-08-26 08:30 | Outpatient (RCR) | payer MEDICARE, SELFPAY ==
--- NOTE | 2023-07-23 07:34 | HP.OTEVAL_ITS ---
Patient's Visit Information Visit Information Visit Information: BRITTON GLASS is a 63 year old F, referred to Occupational Therapy by GHASSAN JEAN-BAPTISTE, with a diagnosis of right Kienbock's Disease. Date of Evaluation: 07/15/23 Occupational Therapist: Tram Woods, OTNuvia/[place]kin, CHT Subjective Subjective: This 63 year old female was seen for OT eval with dx of right Kienbock's disease - pt states she noticed pain when she was doing her Yoga classes over a year ago- pt states she did notice pain picking up her grandchildren. 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 pt states probably symptoms for over two years. pt is very active watching her grandchildren, likes to ski, swim and cycle. pt would like to return to her PLOF. pt arrives 2 weeks and 5 days s/p from right proximal row carpectomy and endoscopic CTR. Pt arrives with forearm clam shell wrist orthosis on. pt states she feels she is doing good, only had to take pain medication on a few occasions. pt states she is ready to return to using her right UE for her ADLs and IADls. ADLs Comments: pt is right handed family is having to assist with self care and Pain right wrist: Current Pain Intensity: 3 Pain Intensity Range: 1 and 3 ROM Forearm: right limited left WNL Wrist: right 20/ 15 left 65/70 ROM Comments: with elbow fully flexed pt demo full supination with elbow almost at full ext. pt demo full pronation without discomfort Strength Strength Comments: will test strength at later date Sensation Sensation Comments: pt states tingling has diminished- Quick DASH-Disab of Arm,Shoulder& Hand Quick DASH Score: 72.7250 Goals Goal:100% adherence to protocol: Yes Goal:Daily scar massage when approriate: Yes Goal:ROM equal to unaffected hand: Yes Comment: ROM to 50% of unaffected Goal:[employer] Commander Deputy Sheriff/Pinch strength at least 75% of unaffected hand: Yes Comment: strength to 50% of unaffected Goal:No pain with affected hand use: Yes Goal:Full use of affected hand in daily activities including work: Yes Goal:Decrease scar hypersensitivity: Yes Other Goal: orthosis use: pt will demo understanding of orthosis use by end of 1s session. Rehabilitation General Assessment: Pt arrives 2 weeks and 5 days s/p right proximal row carpectomy and right endoscopic carpal tunnel release. Pt currently limited with right wrist ROM due to newly healing structures. pt is in need of increase assistance from family with daily occupations and self care. pt demo need for skilled OT services 1-2x week for 6-8 weeks to ed. pt on dx and recovery, improve right wrist ROM and when cleared initiate strengthening to return pt to her PLOF. Today therapist reviewed scar mtg, edema control and made slight adj. to orthosis to increase comfort. as well as ed. pt on performing AROM of shoulder, elbow and digits and opposition ( gave tendon glide ex handout) will initiate short arch wrist AROM and transition to mid arc to full arc motion - pt demo understanding and agree to POC. Rehabilitation Potential: Excellent Anticipated Interventions Anticipated Interventions: A/AAROM/PROM, Strengthening, Scar Care, Triggerpoint Release, Modalities, Orthoses, Joint Protection/Energy Conservation, Ergonomic Education, Education re assistive Equipment, Education re Diagnosis, Caregiver Training and Home Program Visit Plan Frequency: 1-2x /Week Duration: 3 Months General Plan: week 3 initiate short arch wrist, mid arc and transition to full arc wrist may perform forearm supination with the elbow fulling flexed is encouraged for forearm supination elbow is extended make sure pt is not performing shoulder IR when she is performing her forearm ex week 4 begin AROM for wrist and forearm in a neutral position if pt is able to achieve full active pronation- begin the AROM with the forearm pronated week 5 AAROM may be initiated to the forearm and wrist Ed pt to never force motion to achieve forearm ROM orthosis may be off for light ADLs and sedentary activities Week 6 PROM to forearm and wrist include rotation and translation ex for the forearm week 7-8 d,c wrist brace while sleeping initiate endurance and strength for the hand week 10-12 pt may appreciate a neoprene pre-ava wrist support to wear for a few month upon returning to daily tasks ed pt to avoid increase pain with her therapy TEXT: Thank you for the opportunity to evaluate your patient. For Medicare and Medicare HMO plans, please review the plan of care and approve it. It will need to be FAXED BACK to us at [phone] for Medicare purposes. Please let me know if there are questions or concerns regarding this plan of care. Physician Signature: Date:
--- NOTE | 2023-08-19 08:55 | OTREVAL_ITS ---
Re-Evaluation Intro: GHASSAN JEAN-BAPTISTE, It has been my pleasure to treat BRITTON GLASS over the last 6 visits for right Kienbock's Disease. Please see the progress note below for an update on the occupational therapy plan of care! Subjective Subjective: pt arrives states she is feeling good- typically she is feeling good out of her brace. Objective Objective/Function: right wrist 35/35 inital 20/15 right residential nurse strength 15# left 45# pt is making gains and progressing well. will continue cont. to transition pt to PRE as she tolerates for pt to return to her PLOF. Plan Plan Frequency: 1-2x /Week Duration: 3 Months Plan: weaning out of brace strengthen as tolerated make sure pt is not painful and not to cause pain when doing her daily tasks and with strengthening Goals Goals Patient Goals: Regain Mobility, Improve Fine Motor Skills, Use Hand/Wrist/Arm Normally Again, Be More Independent in ADLS and Resume Former Household Responsibilities (Cooking,Cleaning,Yard, etc.) Goal:100% adherence to protocol: Yes Goal:Daily scar massage when approriate: Yes Goal:ROM equal to unaffected hand: Yes Goal:Director Oncology/Pinch strength at least 75% of unaffected hand: Yes Goal:No pain with affected hand use: Yes Goal:Full use of affected hand in daily activities including work: Yes Goal:Decrease scar hypersensitivity: Yes Other Goal: orthosis use: pt will demo understanding of orthosis use by end of 1s session. Anticipated Interventions Anticipated Interventions Anticipated Interventions: A/AAROM/PROM, Strengthening, Scar Care, Triggerpoint Release, Modalities, Orthoses, Joint Protection/Energy Conservation, Ergonomic Education, Education re assistive Equipment, Education re Diagnosis, Caregiver Training and Home Program Re-Evaluation Ending Re-evaluation ending: Please do not hesitate to contact me at [phone] by phone or if you have questions or concerns regarding this new plan of care! Sincerely, Tram Woods OTR/L, CHT
--- NOTE | 2023-10-17 08:33 | HP.OT.NRP ---
Patient Information Patient Information: BRITTON GLASS was seen in my office for initial evaluation on 07/15/23. The following Plan of Care was established for this patient: POC Established Initial Frequency: 1-2x /Week Initial Duration: 3 Months Plan: pt out of brace- perform all ADLS use of putty may need tape for shooting Anticipated Interventions Anticipated Interventions: A/AAROM/PROM, Strengthening, Scar Care, Triggerpoint Release, Modalities, Orthoses, Joint Protection/Energy Conservation, Ergonomic Education, Education re assistive Equipment, Education re Diagnosis, Caregiver Training and Home Program Last Seen Last Seen: This patient was last seen in our office 08/26/23. Pertinent comments regarding their Occupational therapy will appear below: pt was seen for 7 O T sessions. Pt was making great gains with her recovery. She was given HEP and asked to return in 2-3 weeks if she had any concerns. Pt has not scheduled further apts and is d/c at this time due to time lapse in services. At this point I will be discontinuing this patient from occupational therapy. I would be happy to see this patient again in the future if found appropriate by the physician. Thank you! Tram Woods, OTR/L, CHT
== END 2023-08-26 19:00 | disposition home or self-care (01) ==
LOC: OT 08:30
PROVIDERS: PCP Internal Medicine
DX: M92.211 Osteochondrosis (juvenile) of carpal lunate [Kienbock], right hand (principal)
CPT/HCPCS: 97035; 97110; 97140; 97166; 97530

== ENCOUNTER → 2024-05-12 | Outpatient (CLI) | payer MEDICARE, SELFPAY ==
--- NOTE | 2024-05-12 07:32 | BI_ITS ---
MAMMOGRAPHY - BILATERAL SCREENING REASON FOR EXAM: Female, 64 years old. Routine annual screening examination. PERTINENT HISTORY: Grandfather with breast cancer. Remote left excisional breast biopsy. TECHNIQUE: Digital bilateral breast breonna (3D mammographic acquisition) in the CC and MLO projections. 2-D mediolateral oblique (MLO) and craniocaudad (CC) views of both breasts were obtained. CAD: Full Field Digital Mammography with Computer Added Detection was performed. COMPARISON: Comparison is made with prior study May 01, 2023 and April 30, 2022. FINDINGS: Breast Composition: The breasts are extremely dense, which lowers the sensitivity of mammography. There are no dominant masses or suspicious calcifications. No other significant abnormalities are identified. There has been no significant change since the prior study. BI/SCRN MAMM (CAD)W/BREONNA BILAT IMPRESSION: Stable bilateral screening mammogram. Yearly follow-up mammogram recommended. (A) ASSESSMENT CATEGORY: BIRADS Category 1: Negative. A letter regarding these results will be sent to the patient by the facility within 30 days. Approximately 10% of breast cancers are not detected by mammography. A normal mammogram should not delay biopsy of a clinically suspicious abnormality. [id number] Electronically Signed: Greg Avitia MD at 8:46 EST ,
--- OUTSIDE RECORDS SUMMARY | 2024-05-12 07:34 | XMS RPT_ITS | CCD ---
Author Organization [facility] [employer] Care Team Providers Care Data Analytics Developer Name Role Phone Wayne HOBSON, Migue Edmondson Unavailable [phone] Darleen CARMONA, Lennie Patel Unavailable [phone] Pallavi ORACLE BPM CONSULTANT, Hannah S Unavailable Problems Problem Classification Problem Date Documented Date Episodic/Chronic Unclassified (2 sources) Screening for malignant neoplasm of colon ; Translations: [Encounter for screening for malignant neoplasm of colon] Onset: 05-08-2017 05-08-2017 Unclassified (2 sources) Gynecologic examination ; Translations: [Encounter for gynecological examination (general) (routine) without abnormal findings] Onset: 02-13-2017 02-13-2017 Unclassified (2 sources) Screening mammography ; Translations: [Encounter for screening mammogram for malignant neoplasm of breast] Onset: 02-13-2017 02-13-2017 Results Test Name Value Interpretation Reference Range [facility] Lab Report: PAP I-G HPV Hi R iskon 02-20-2017 HPV HC,HGH RISK Negative Invalid Interpretation Code Negative [facility] Office Visit: est annualon 0 02-13-2017 Documentation of current medications (procedure) T Invalid Interpretation Code [facility] Work Phone: Documentation of current medications (procedure) Done Invalid Interpretation Code [facility] Work Phone: Fall risk assessment No Invalid Interpretation Code [facility] Protein mass conc T [place] Protein mass conc [facility] Tobacco smoking status NHIS Never Invalid Interpretation Code [facility] Tobacco smoking status NHIS Tobacco smoking status NHIS Invalid Interpretation Code [facility] Work Phone: Tobacco smoking status NHIS Never smoker [facility] Tobacco use [facility] Never smoker Invalid Interpretation Code [facility] Work Phone: Office Visit: est annualon 0 02-06-2016 MG Breast screening Normal Bilateral Invalid Interpretation Code [facility] Vital Signs Date Time Vital Sign Value Performing Clinician Facility 02-13-2017 08:03-0400 BMI (Body Mass Index) 21.16 kg/m2 Hannah Olivo NP [facility] 02-13-2017 08:03-0400 Body Temperature 96.9 [degF] Hannah Avilas ORACLE BPM CONSULTANT [facility] 02-13-2017 08:03-0400 Body Temperature 96.91 [degF] Hannah Avilas ORACLE BPM CONSULTANT [facility] 02-13-2017 08:03-0400 BP Diastolic 72 mm[Hg] Hannah Olivo ORACLE BPM CONSULTANT [facility] 02-13-2017 08:03-0400 BP Systolic 113 mm[Hg] Hannah Olivo ORACLE BPM CONSULTANT [facility] 02-13-2017 08:03-0400 Height 154.94 cm Hannah Olivo ORACLE BPM CONSULTANT [facility] 02-13-2017 08:03-0400 Pulse (Heart Rate) 64 /min Hannah Olivo ORACLE BPM CONSULTANT [facility] 02-13-2017 08:03-0400 Respiratory Rate 16 /min Hannah [facility]ACLE [facility] 02-13-2017 08:03-0400 Weight 50.8 kg Hannah Olivo ORACLE BPM CONSULTANT [facility] Procedures Date Procedure Procedure Detail Performing Clinician Start: 02-13-2017 End: 02-20-2017 Mammogram, screening Hannah Olivo ORACLE BPM CONSULTANT Work Phone: Start: 02-13-2017 Gynecologic examination Routine gynecological examination Hannah Olivo NP Start: 02-13-2017 End: 02-20-2017 Mammogram, screening Hannah Olivo ORACLE BPM CONSULTANT Work Phone: Start: 02-13-2017 Screening mammography Mammogram yearly screening Hannah Olivo NP Plan of Treatment Date Care Activity Detail Author Start: 07-05-2017 End: 07-05-2017 Appointment Appointment [facility] Work Phone: Start: 05-08-2017 End: 05-08-2017 Colonoscopy flx dx w/collj spec when pfrmd Colonoscopy [facility] Work Phone: Start: 02-13-2017 End: 02-20-2017 Mammogram, screening Mammogram, Screening, both breasts [facility] Work Phone: Start: 02-13-2017 End: 02-13-2017 Appointment Appointment [facility] Start: 02-13-2017 End: 02-20-2017 Mammogram, screening Mammogram, Screening, both breasts [facility] Additional Source Comments FOR RECORDS PERTAINING TO PATIENTS WHO ARE OR HAVE BEEN ENROLLED IN A CHEMICAL DEPENDENCY/SUBSTANCEABUSE PROGRAM, SOME INFORMATION MAY BE OMITTED. This clinical summary was aggregated from multiple sources. Caution should be exercised in using it in the provision of clinical care. This summary normalizes information from multiple sources, and as a consequence, information in this document may materially change the coding, format and clinical context of patient data. In addition, data may be omitted in some cases. CLINICAL DECISIONS SHOULD BE BASED ON THE PRIMARY CLINICAL RECORDS. [facility] [employer] [facility]. provides no warranty or guarantee of the accuracy or completeness of information in this document.
== END | disposition home or self-care (01) ==
LOC: OPBI 07:32
PROVIDERS: PCP Internal Medicine; Referring Provider Nurse Practitioner Women's Health; Visit Provider Nurse Practitioner Women's Health
DX: Z12.31 Encounter for screening mammogram for malignant neoplasm of breast (principal)
CPT/HCPCS: 77063; 77067

== ENCOUNTER → 2025-06-07 | Outpatient (CLI) | payer MEDICARE, SELFPAY ==
--- NOTE | 2025-06-07 15:00 | BI_ITS ---
EXAM: SCRN MAMM (CAD)W/BREONNA BILAT DATE: 06/07/2025 CLINICAL HISTORY: F, Age 65 y/o , SCREEN FOR BREAST CANCER TECHNIQUE: Procedure Code: [id number] Modality: MG Procedure: SCRN MAMM (CAD)W/BREONNA BILAT COMPARISON: Prior exam(s) dated 05/12/2024, 05/01/2023, and 04/30/2022 FINDINGS: TISSUE DENSITY: The breasts are heterogeneously dense, which may obscure small masses. Bilateral Breast Mammographic Findings: Benign-appearing round microcalcifications are seen in both breasts. No suspicious masses, suspicious cluster of microcalcifications, architectural distortion or secondary sign of malignancy is identified in either breast. BI/SCRN MAMM (CAD)W/BREONNA BILAT IMPRESSION: Benign screening mammogram. OVERALL FINAL ASSESSMENT BI-RADS 2: BENIGN RECOMMENDATION: Routine annual follow-up in 1 Year Additional Recommendation none A letter with findings and recommendations will be mailed to the patient. Reading Location: [id number]
== END | disposition home or self-care (01) ==
LOC: OPBI 14:52
PROVIDERS: PCP Internal Medicine; Referring Provider Nurse Practitioner Women's Health; Visit Provider Nurse Practitioner Women's Health
DX: Z12.31 Encounter for screening mammogram for malignant neoplasm of breast (principal)
CPT/HCPCS: 77063; 77067